=== PATIENT | male | born 1975 | race African-American/Black ===

== ENCOUNTER 2021-06-12 14:36 | Emergency (ER) | payer MEDICAID ==
[~2021-06-12] VITALS: Ht 170.2 cm; Wt 67.0 kg
[2021-06-12] MEDS ORDERED: HYDR-4001 MT (17:16)
[2021-06-12] MEDS ORDERED: IBUP-2030 MT (17:16)
[2021-06-12 18:02] VITALS: BP 135/89
== END 2021-06-12 18:04 | disposition home or self-care (01) ==
LOC: ER 14:36
DX: S62.604A Fracture of unspecified phalanx of right ring finger, initial encounter for closed fracture (principal); W18.39XA Other fall on same level, initial encounter; Y93.89 Activity, other specified; Y92.89 Other specified places as the place of occurrence of the external cause; Y99.8 Other external cause status; J45.909 Unspecified asthma, uncomplicated
CPT/HCPCS: 29125; 73130; 99283

== ENCOUNTER 2023-01-02 06:15 | Emergency (ER) | payer MEDICAID ==
[~2023-01-02] VITALS: Ht 170.2 cm; Wt 66.0 kg
[~2023-01-02 06:15] MED LIST: HYDR-4001 MT; IBUP-2030 MT
[2023-01-02] MEDS ORDERED: METHYLPREDNISOLONE SOD SUCC 125MG/2ML (ACT-O-VIAL) IV STA (06:48)
[2023-01-02] MEDS ORDERED: MAGNESIUM 2 G PREMIX 50 ML IV STA (06:48)
[2023-01-02] MEDS ORDERED: IPRATROPIUM BROMIDE (0.02%) 0.5MG/2.5ML NEB HHN STA (06:48)
[2023-01-02] MEDS ORDERED: ALBUTEROL (0.083%) 2.5MG/3ML NEB HHN STA (06:48)
[2023-01-02 07:33] VITALS: PULSE 84; RESP 22; O2SAT 100
[2023-01-02] MEDS ORDERED: ALBU6.7H3 INH (08:45)
[2023-01-02] MEDS ORDERED: P50 PO (08:45)
[2023-01-02 10:00] VITALS: BP 127/91; PULSE 84; RESP 18; TEMP 98.4
== END 2023-01-02 10:34 | disposition home or self-care (01) ==
LOC: ER 06:15
DX: J45.901 Unspecified asthma with (acute) exacerbation (principal); F12.10 Cannabis abuse, uncomplicated
CPT/HCPCS: 71045; 93005; 94644; 96365; 96366; 96375; 99285; J3475; J2930; Z7610 ×3